=== PATIENT | female | born 1980 | race Caucasian/White ===

== ENCOUNTER 2021-04-05 10:51 | Observation (INO) | payer OTHER, SELFPAY ==
[2021-04-05] VITALS (8 sets, daily range): BP systolic 115–157; BP diastolic 69–95; PULSE 72–100; RESP 14–18; TEMP 36.3–36.8; O2SAT 97–99; BMI 22.6
--- NOTE | 2021-04-05 11:01 | DI.RAD.S_ITS ---
PROCEDURE: XR CHEST 1V INDICATIONS: chest pain/ shortness of breath TECHNIQUE: One view of the chest was acquired. COMPARISON: None. FINDINGS: Surgical changes and devices: None. Lungs and pleura: Lungs are clear. No pleural effusions or pneumothorax. Mediastinum: Mediastinal contours appear normal. Heart size is normal. Bones and chest wall: No suspicious bony lesions. Overlying soft tissues appear unremarkable. IMPRESSION: Portable chest within normal limits. Dictated by: Cuco Hurtado M.D. on 04/05/2021 at 10:14 Approved by: Cuco Hurtado M.D. on 04/05/2021 at 10:14
--- NOTE | 2021-04-05 11:27 | ED.CHESTPAIN ---
HPI - Chest Pain General Chief Complaint: Chest Pain Stated Complaint: Pain comes and goes chest, second vaccine-week Time Seen by Provider: 04/05/21 11:05 Source: patient Mode of arrival: Ambulatory Limitations: no limitations History of Present Illness HPI narrative: Patient complains substernal chest pressure off and on for the past 2 weeks. Patient had 2nd Moderna vaccine on March 26. That night she felt very tired fatigued. However in the following days she started experiencing discomfort of the chest at rest as well as with exertion. Patient currently has no chest pain. Feels short of breath at times. No cough cold congestion. No fever chills. Does not smoke. Does not take blood pressure medication or cholesterol medication. Family history of coronary disease with father starting in his 50s. Patient is 40 years of age. No history of blood clots in legs or lungs. Denies any calf pain. Related Data Home Medications Medication Instructions Recorded Confirmed multivitamin (Multiple Vitamins) 1 tab PO QDAY #0 06/01/17 04/05/21 Allergies Allergy/AdvReac Type Severity Reaction Status Date / Time prochlorperazine Allergy Unknown Verified 04/05/21 10:58 [PROCHLORPERAZINE] Review of Systems Review of Systems Narrative: GENERAL: Denies chills, fatigue, malaise, fever, sweats. HEENT: Denies sinus pain, ear pain, sore throat RESPIRATORY: Complains dyspnea, denies cough CARDIOVASCULAR: Complains chest pain, denies palpitations GASTROINTESTINAL: Denies nausea, vomiting, abdominal pain : Denies dysuria, frequency, hematuria MUSCULOSKELETAL: denies muscle or bony pain SKIN: Denies rash, skin lesions NEUROLOGIC: Denies weakness, numbness ROS Unobtainable: All systems reviewed & are unremarkable except as noted in HPI and below Patient History Surgical History Status post skin graft Family History (Updated 04/05/21 @ 16:04 by Kartik Ward MD) Father Age: 76 Atrial fibrillation, unspecified type Grandmother Brain tumor Primary malignant neoplasm of liver Mother Sjogren's disease Fibromyalgia Social History household members: spouse and family Smoking Status: Never smoker Smoking Status: Never smoker alcohol intake frequency: 0-2 drinks per day Substance Use Type: does not use Exam Narrative Exam Narrative: GENERAL: in no distress, not toxic not dyspneic HEAD: Normocephalic. EYES: Pupils equal round No scleral icterus. No injection no discharge ENT: Mucous membranes moist. NECK: Trachea midline. CARDIOVASCULAR: Regular rate and rhythm without murmurs RESPIRATORY: Clear to auscultation. Breath sounds equal bilaterally. No wheezes, rales, or rhonchi. GASTROINTESTINAL: Abdomen soft, non-tender EXTREMITIES: No gross deformities. No calf tenderness BACK: No flank tenderness. NEURO: AOx4. SKIN: Warm and dry PSYCH: Not anxious, is cooperative Initial Vital Signs Initial Vital Signs: Vital Signs Temperature 97.4 F L 04/05/21 10:53 Pulse Rate 100 H 04/05/21 10:53 Respiratory Rate 14 04/05/21 10:53 Blood Pressure 157/95 H 04/05/21 10:53 Pulse Oximetry 99 04/05/21 10:53 Course Course Course Narrative: No new issues during course of stay. Currently chest pain-free Decision to Admit Date: 04/05/21 Decision to Admit time: 12:59 Orders Ordered: ED Orders 04/05/21 11:01 Chest [XR chest 1V] Stat EKG-12 Lead Stat 04/05/21 11:50 Complete Blood Count AUTO DIFF Stat Comprehensive Metabolic Panel Stat D Dimer Stat Lipase Stat Test Serum,Qual Stat Troponin & CK Cardiac Panel Stat Acetaminophen (Acetaminophen 325 Mg Tablet) 650 mg PO Q6HR PRN PRN Reason: Fever/Mild Pain (1-3) Enoxaparin Sodium (Enoxaparin 40 Mg/0.4 Ml Syringe) 40 mg SUBCUT DAILY WOLF Magnesium Hydroxide (Magnesium Hydroxide 30 Ml Udc) 30 ml PO DAILY PRN PRN Reason: Constipation Naloxone HCl (Naloxone 0.4 Mg/Ml Vial) 0.2 mg IV Q2MIN PRN PRN Reason: Opiate Reversal Discontinued Medications Aspirin (Aspirin 325 Mg Tablet) 325 mg PO NOW ONE Stop: 04/05/21 13:46 Last Admin: 04/05/21 14:32 Dose: 325 mg Documented by: TAJ Sodium Chloride (Normal Saline 0.9%) 1,000 mls @ 150 mls/hr IV CONT WOLF Last Infusion: 04/05/21 13:25 Dose: 0 mls/hr Documented by: Admin: 04/05/21 11:48 Dose: 150 mls/hr Documented by: ATAYLOR Reevaluation(s) Reevaluation #1: Reviewed results with patient. Currently chest pain-free. She agrees with admission. Time: 12:59 Consultations Consultation #1: Spoke with hospitalist, Dr Ward, will admit Time: 12:59 Vital Signs Vital signs: Vital Signs - 8 hr 04/05/21 10:53 04/05/21 12:26 Temperature 97.4 F L Pulse Rate 100 H 83 Respiratory Rate 14 16 Blood Pressure 157/95 H 128/73 Pulse Oximetry 99 99 MDM - Chest Pain Differential Diagnosis Differential diagnosis: Likely stable angina, unstable angina pectoris, atypical chest pain, st elevation myocardial infarction, costochondritis and chest pain Lab Data Result diagrams: 04/05/21 11:50 04/05/21 11:50 Labs: Lab Results 04/05/21 04/05/21 04/05/21 Range/Units 11:50 11:50 11:50 WBC 6.1 (4.5-11.0) X10^3/uL RBC 4.31 (4.0-5.2) X10^6/uL Hgb 12.7 (12.0-16.0) g/dL Hct 37.6 (36-46) % MCV 87.2 (80-100) fL MCH 29.4 (26-34) PG MCHC 33.7 (30-36) % RDW 13.3 (11.6-14.8) % Plt Count 300 (150-400) X10^3/uL Neut % (Auto) 64.7 (50-75) % Lymph % (Auto) 26.0 (25-40) % [place] % (Auto) 7.0 (3-14) % Eos % (Auto) 1.6 L (2-4) % Baso % (Auto) 0.7 (0-2) % Neut # (Auto) 3900 (0125-5388) /uL Lymph # (Auto) 1600 (3188-0129) /uL [place] # (Auto) 400 (0-900) /uL Eos # (Auto) 100 (0-450) /uL Baso # (Auto) 0 (0-100) /uL D-Dimer < 200 (<230) ng/mL Sodium 139 (137-145) mmol/L Potassium 4.0 (3.4-5.1) mmol/L Chloride 108 H (98-107) mmol/L Carbon Dioxide 27 (22-32) mmol/L BUN 10 (7-17) mg/dL Creatinine 0.56 (0.52-1.04) mg/dL Estimated GFR > 60.0 (>60) mL/min BUN/Creatinine Ratio 17.9 (6-22) Glucose 101 H (70-100) mg/dL Calcium 8.9 (8.4-10.2) mg/dL Total Bilirubin 0.7 (0.2-1.3) mg/dL AST 22 (14-36) IU/L ALT 20 (<35) IU/L Alkaline Phosphatase 51 (38-126) U/L Total Creatine Kinase 36 (30-135) U/L CK-MB (CK-2) TNP CK-MB (CK-2) Rel Index TNP Troponin I < 0.012 (0.01-0.034) ng/mL Total Protein 7.2 (6.3-8.2) g/dL Albumin 4.4 (3.5-5.0) g/dL Globulin 2.8 (1.7-4.1) g/dL Albumin/Globulin Ratio 1.6 (1.0-2.8) Lipase 92 (23-300) U/L Serum , Qual (Negative) 04/05/21 Range/Units 11:50 WBC (4.5-11.0) X10^3/uL RBC (4.0-5.2) X10^6/uL Hgb (12.0-16.0) g/dL Hct (36-46) % MCV (80-100) fL MCH (26-34) PG MCHC (30-36) % RDW (11.6-14.8) % Plt Count (150-400) X10^3/uL Neut % (Auto) (50-75) % Lymph % (Auto) (25-40) % [place] % (Auto) (3-14) % Eos % (Auto) (2-4) % Baso % (Auto) (0-2) % Neut # (Auto) (5292-6337) /uL Lymph # (Auto) (0275-5043) /uL [place] # (Auto) (0-900) /uL Eos # (Auto) (0-450) /uL Baso # (Auto) (0-100) /uL D-Dimer (<230) ng/mL Sodium (137-145) mmol/L Potassium (3.4-5.1) mmol/L Chloride (98-107) mmol/L Carbon Dioxide (22-32) mmol/L BUN (7-17) mg/dL Creatinine (0.52-1.04) mg/dL Estimated GFR (>60) mL/min BUN/Creatinine Ratio (6-22) Glucose (70-100) mg/dL Calcium (8.4-10.2) mg/dL Total Bilirubin (0.2-1.3) mg/dL AST (14-36) IU/L ALT (<35) IU/L Alkaline Phosphatase (38-126) U/L Total Creatine Kinase (30-135) U/L CK-MB (CK-2) CK-MB (CK-2) Rel Index Troponin I (0.01-0.034) ng/mL Total Protein (6.3-8.2) g/dL Albumin (3.5-5.0) g/dL Globulin (1.7-4.1) g/dL Albumin/Globulin Ratio (1.0-2.8) Lipase (23-300) U/L Serum , Qual Negative (Negative) Imaging Data Chest x-ray: Radiologist's Impression: [address] [id number] ReportSigned Patient: Sintia Cortez [facility]#: [id number]: 1980Acct:[id number]/Sex: 40 / FDate of Service: 04/05/21Loc: EDAccession Number: [id number] Procedure: XR chest 1V Ordering Provider: Omar Logan MD PROCEDURE: XR CHEST 1V INDICATIONS: chest pain/ shortness of breath TECHNIQUE: One view of the chest was acquired. COMPARISON: None. FINDINGS: Surgical changes and devices: None. Lungs and pleura: Lungs are clear. No pleural effusions or pneumothorax. Mediastinum: Mediastinal contours appear normal. Heart size is normal. Bones and chest wall: No suspicious bony lesions. Overlying soft tissues appear unremarkable. IMPRESSION: Portable chest within normal limits. Dictated by: Cuco Hurtado M.D. on 04/05/2021 at 10:14 Approved by: Cuco Hurtado M.D. on 04/05/2021 at 10:14 ECG Data Interpretation: Normal sinus rhythm rate [address] elevation or depression MDM Narrative Medical decision making narrative: Appropriate for admission for chest pain rule out and stress test. Father has history of early coronary disease. Patient agreeable for admission. She desires stress test. Discharge Plan Departure Patient Disposition: Admitted as Observation Clinical Impression: Chest pain Qualifiers: Chest pain type: unspecified Qualified Code(s): R07.9 - Chest pain, unspecified Admit Date/Time: 04/05/21 13:00 Admit Provider: Kartik Ward
[2021-04-05] MEDS: SODIUM CHLORIDE 0.9% 1,000 ML 150 ML IV (11:48)
[2021-04-05 12:00] LABS: Add Manual Diff / Slide Review NO; Basophils Absolute Auto 0 /uL (0-100); Basophils Percent Auto 0.7 % (0-2); Eosinophils Absolute Auto 100 /uL (0-450); Eosinophils Percent Auto 1.6 % (2-4); Hematocrit 37.6 % (36-46); Hemoglobin 12.7 g/dL (12.0-16.0); Lymphocytes Absolute Auto 1600 /uL (1100-4500); Mean Corpuscular HGB Conc 33.7 % (30-36); Mean Corpuscular Hemoglobin 29.4 PG (26-34); Mean Corpuscular Volume 87.2 fL (80-100); Monocytes Absolute Auto 400 /uL (0-900); Neutrophils Absolute Auto 3900 /uL (1500-7000); Neutrophils Percent Auto 64.7 % (50-75); Platelet Count 300 X10^3/uL (150-400); Red Blood Cell Count 4.31 X10^6/uL (4.0-5.2); Red Cell Distribution Width 13.3 % (11.6-14.8); White Blood Cell Count 6.1 X10^3/uL (4.5-11.0)
[2021-04-05 12:20] LABS: Alanine Aminotransferase 20 IU/L (<35); Albumin 4.4 g/dL (3.5-5.0); Albumin Globulin Ratio 1.6 (1.0-2.8); Alkaline Phosphatase 51 U/L (38-126); Aspartate Aminotransferase 22 IU/L (14-36); BUN Creatinine Ratio 17.9 (6-22); Bilirubin Total 0.7 mg/dL (0.2-1.3); Blood Urea Nitrogen 10 mg/dL (7-17); Calcium 8.9 mg/dL (8.4-10.2); Carbon Dioxide 27 mmol/L (22-32); Chloride 108 mmol/L (98-107); Creatine Kinase 36 U/L (30-135); D Dimer < 200 ng/mL (<230); Estimated Glomerular Filt Rate > 60.0 mL/min (>60); Globulin 2.8 g/dL (1.7-4.1); Glucose 101 mg/dL (70-100); HEMOLYSIS < 15 (0-50); Lipase 92 U/L (23-300); Sodium 139 mmol/L (137-145); Total Protein 7.2 g/dL (6.3-8.2)
[2021-04-05 12:31] LABS: Troponin I < 0.012 ng/mL (0.01-0.034)
[2021-04-05 12:53] LABS: Pregnancy Test Serum,Qual Negative (Negative)
[2021-04-05] MEDS: ASPIRIN 325 MG TABLET PO (14:32)
--- NOTE | 2021-04-05 15:01 | PC.NURSE ---
A&Ox4. VSS. Denies pain at this time. Saline locked. NPO until cardiac testing. Tele placed. On isolation precautions until Covid test results. Call light within reach, bed low.
[2021-04-05 15:17] LABS: COVID19 - ADMIT (NP swab/PCR) Negative (Negative)
--- NOTE | 2021-04-05 15:59 | PM.HP.1 ---
History of Present Illness History of Present Illness Date Patient Seen: 04/05/21 Time Patient Seen: 15:30 Date of Onset of Symptoms: 03/29/21 Chief complaint: Pain comes and goes chest, second vaccine-week Narrative: Patient is 40-year-old female presented to ED with complaints of intermittent substernal and precordial chest discomfort for the past week. Patient states she had her 2nd shot of Pfizer vaccine on March 26. She felt tired for a couple of days after the shot. About 3 or 4 days after the shot she began to notice intermittent dull discomfort across her chest. The discomfort is nonradiating. She got more worried discomfort when developed more severe pain while mixing concrete. She does have intermittent dyspnea which she states is similar to what she has noticed in the past with anxiety. However, the chest pain is not something she has experienced before. No abdominal pain, nausea or vomiting. No fevers, chills or cough. She had normal EKG and troponin. COVID PCR negative. She is not on any medications. Family history notable for father who developed AFib in his 40s and is alive at 76. No other cardiac family history. Patient is nonsmoker. Patient History Surgical History Status post skin graft Family & Social History Family History Father Age: 76 Atrial fibrillation, unspecified type Grandmother Brain tumor Primary malignant neoplasm of liver Mother Sjogren's disease Fibromyalgia Social History: household members spouse,family Prior Living Arrangements House Safety & Behavioral: Feels Safe in Current Yes Environment Been Physically Hurt or No Threatened By a Person Suicidal Ideation Description None Suicide Plan Description No Plan Tobacco & Substance use: Smoking Status Never smoker alcohol intake frequency 0-2 drinks per day Substance Use Type does not use Meds Home Medications and Allergies Home Medications Medication Instructions Recorded Confirmed Type multivitamin (Multiple Vitamins) 1 tab PO QDAY #0 06/01/17 04/05/21 History Allergies Allergy/AdvReac Type Severity Reaction Status Date / Time prochlorperazine Allergy Unknown Verified 04/05/21 10:58 [PROCHLORPERAZINE] Review of Systems Review of Systems Narrative: Complete ROS otherwise negative. Exam Vital Signs (past 8 hours): - 04/05/21 10:53 04/05/21 12:26 04/05/21 13:57 Temperature 97.4 F L Pulse Rate 100 H 83 Respiratory Rate 14 16 Blood Pressure 157/95 H 128/73 Pulse Oximetry 99 99 99 04/05/21 15:58 Temperature 97.3 F L Pulse Rate 72 Respiratory Rate 16 Blood Pressure 126/76 Pulse Oximetry 99 Oxygen Delivery Method Room Air Narrative Exam Narrative: General: Alert pleasant and cooperative female NAD HEENT: Anicteric Neck: No lymphadenopathy Lungs: Clear to auscultation Heart: Normal S1 and S2, regular rate and rhythm, no murmur Abdomen: Nondistended, nontender, no HSM Extremities: No edema Neurological: Affect normal, speech normal Objective Labs Result Diagrams: 04/05/21 11:50 04/05/21 11:50 Labs: Laboratory Results - last 24 hr 04/05/21 04/05/21 04/05/21 11:50 11:50 11:50 WBC 6.1 RBC 4.31 Hgb 12.7 Hct 37.6 MCV 87.2 MCH 29.4 MCHC 33.7 RDW 13.3 Plt Count 300 Neut % (Auto) 64.7 Lymph % (Auto) 26.0 [place] % (Auto) 7.0 Eos % (Auto) 1.6 L Baso % (Auto) 0.7 Neut # (Auto) 3900 Lymph # (Auto) 1600 [place] # (Auto) 400 Eos # (Auto) 100 Baso # (Auto) 0 D-Dimer < 200 Sodium 139 Potassium 4.0 Chloride 108 H Carbon Dioxide 27 BUN 10 Creatinine 0.56 Estimated GFR > 60.0 BUN/Creatinine Ratio 17.9 Glucose 101 H Calcium 8.9 Total Bilirubin 0.7 AST 22 ALT 20 Alkaline Phosphatase 51 Total Creatine Kinase 36 CK-MB (CK-2) TNP CK-MB (CK-2) Rel Index TNP Troponin I < 0.012 Total Protein 7.2 Albumin 4.4 Globulin 2.8 Albumin/Globulin Ratio 1.6 Lipase 92 Serum , Qual SARS-CoV-2 (PCR) 04/05/21 04/05/21 11:50 13:09 WBC RBC Hgb Hct MCV MCH MCHC RDW Plt Count Neut % (Auto) Lymph % (Auto) [place] % (Auto) Eos % (Auto) Baso % (Auto) Neut # (Auto) Lymph # (Auto) [place] # (Auto) Eos # (Auto) Baso # (Auto) D-Dimer Sodium Potassium Chloride Carbon Dioxide BUN Creatinine Estimated GFR BUN/Creatinine Ratio Glucose Calcium Total Bilirubin AST ALT Alkaline Phosphatase Total Creatine Kinase CK-MB (CK-2) CK-MB (CK-2) Rel Index Troponin I Total Protein Albumin Globulin Albumin/Globulin Ratio Lipase Serum , Qual Negative SARS-CoV-2 (PCR) Negative Assessment & Plan Assessment & Plan narrative: 1. Acute chest pain -patient with intermittent dull precordial pain x1 week -initial EKG, troponin negative, chest x-ray normal -admit to observation telemetry -aspirin 325 mg x 1 then 81 mg q.d. -serial troponin -stress Mibi -echo -lipid panel Time Spent With Patient Critical Care time: I spent a total of [] minutes of critical care time on this patient's care today; this time is exclusive of procedural time.
[2021-04-05 20:50] LABS: Cholesterol 164 mg/dL (140-199); HDL Cholesterol 49 mg/dL (40-60); LDL Cholesterol Calculated 96 mg/dL (<100); Triglycerides 96 mg/dL (35-150)
[2021-04-05 21:02] LABS: Troponin I < 0.012 ng/mL (0.01-0.034)
[2021-04-06] VITALS (11 sets, daily range): BP systolic 95–125; BP diastolic 54–90; PULSE 66–74; RESP 16–18; TEMP 36.2–36.6; O2SAT 96–99
--- NOTE | 2021-04-06 07:23 | DI.ECHO.S_ITS ---
Reason For Study: CHEST PAIN : :Ordering Physician: TAMI : :OLIVIA Performed By: Alexa Ha : :Referring: OLIVIA GARRETT : + + Interpretation Summary Left ventricular systolic function is normal with an estimated ejection fraction of 60 to 65%. Left ventricular global longitudinal strain average is borderline at -19.2% (normal being more negative than -20%). There are no focal wall motion abnormalities. Left ventricular size and wall thickness are normal. Diastolic function is normal with probable normal filling pressures. The right ventricle is normal in size and function. The right ventricular systolic pressure is estimated to be at least 19 mmHg based on an estimated right atrial pressure of 3 mm Hg. Both atria are normal in size. There is mild tricuspid regurgitation but no significant valvular disease No pericardial effusion Procedure: A two-dimensional transthoracic echocardiogram with color flow and Doppler was performed. The study quality was technically adequate. There is no prior echocardiogram noted for this patient. The patient was in sinus rhythm with heart rates between 64-71 bpm during the exam. Left Ventricle: The left ventricle appears normal in size, wall thickness, and systolic function without any focal wall motion abnormalities. The ejection fraction is estimated to be 60-65%. Left ventricular global longitudinal strain average is borderline abnormal (normal being more negative than -20%). Left ventricular global longitudinal strain average is -19.2%. Diastolic parameters suggest probable normal left ventricular diastolic function and normal filling pressures. Right Ventricle: The right ventricle is normal in size and function. Atria: Both atria are normal in size. There is no Doppler evidence for an interatrial shunt. Mitral Valve: The mitral valve is normal in structure and function. There is trace mitral regurgitation. Aortic Valve: The aortic valve is normal in structure and function. The aortic valve is trileaflet. The aortic valve opens well. There is no aortic valve stenosis. No aortic regurgitation is present. Tricuspid Valve: The tricuspid valve is normal in structure and function. There is mild tricuspid regurgitation. The right ventricular systolic pressure is estimated to be at least 19 mmHg based on an estimated right atrial pressure of 3 mm Hg. Pulmonic Valve: The pulmonic valve is not well visualized. There is trace pulmonic regurgitation. Great Vessels: The aortic root is normal size. The dimensions of the ascending aorta are normal. The IVC is of normal diameter and collapses greater than 50% with a sniff. This suggests a low right atrial pressure of 3 mm Hg. Pericardium/ Pleura There is no pericardial effusion. There is no pleural effusion. MMode/2D Measurements & Calculations LVIDd: 4.3 cm LVOT diam: 2.0 cm LVIDs: 2.9 cm Ao root diam: 2.7 cm FS: 32.3 % asc Aorta Diam: 3.0 cm IVSd: 0.77 cm Ao Arch Diam (Prox Trans): 2.7 cm LVPWd: 0.51 cm LV milner. diameter/BSA (cm/m^2): 2.5 LV sys. diameter/BSA (cm/m^2): 1.7 LA A2 area: 18.1 cm2 RA long axis: 4.6 cm LA A4 area: 17.2 cm2 RA area: 15.9 cm2 LA length (vol): 4.8 cm RA vol: 47.3 ml LA vol: 54.5 ml RA : 27.5 ml/m2 LA vol index: 31.7 ml/m2 IVC diam: 1.8 cm RVD1 (basal): 3.2 cm TAPSE: 1.8 cm Doppler Measurements & Calculations Ao V2 max: 114.1 cm/sec LVOT Max Jose Francisco: 90.3 cm/sec Ao V2 mean: 72.6 cm/sec LV V1 max P.3 mmHg Ao max P.2 mmHg LV V1 VTI: 19.1 cm Ao mean P.5 mmHg LORENE(I,D): 2.5 cm2 Ao V2 VTI: 23.8 cm LORENE(V,D): 2.5 cm2 sev ratio: 0.80 LORENE indexed to BSA (cm^2/m^2): 1.5 MV E max jose francisco: 81.4 cm/sec TR max jose francisco: 199.6 cm/sec MV A max jose francisco: 46.4 cm/sec TR max P.9 mmHg MV E/A: 1.8 PA V2 max: 86.4 cm/sec Med Peak E' Jose Francisco: 9.6 cm/sec PA V2 mean: 54.8 cm/sec E/E' med: 8.4 PA mean P.4 mmHg Lat Peak E' Jose Francisco: 13.6 cm/sec PA pr(Accel): 19.1 mmHg E/E' lat: 6.0 E/e' average: 7.2 MV dec time: 0.21 sec SV(LVOT): 59.4 ml Reading Physician:05:44 PM
--- NOTE | 2021-04-06 14:01 | CM.DANOTE ---
DCP: Case received, EMR reviewed and met with patient. Spouse, Omar, was at bedside. Introduced self and role. Was able to obtain obtain information regarding her baseline health status, as well as some financial information. DCP assessment completed with information currently available. Patient is a 40 year old female who admitted yesterday afternoon to the care of the hospitalist team. PCP: Dr. Nielsen Payer: No insurance. Patient came to the hospital via private vehicle secondary to having some chest pain. Patient had recent COVID vaccine, phizer, and thought that it might have been from the shot. Patient is shreyas for chest pain, and will be having a stress test today. Met with patient and , in room. Asked her if she had any insurance, she indicated, she does not, she had spoken to the admission counselors already, she stated that she has a medical fund. Patient indicated, she usually is health, and hasn't had to recently see anyone. According to collection notes, patient was given a financial packet. Patient is independent at her baseline. She resides with , Omar, here in [place]. Her provider is at [facility]. P: DCP to continue to follow. Patient should be able to go home when she is deemed medically stable, and after cardiac testing is completed. Aliza Herman RN/Cupola Patcher Helper
--- NOTE | 2021-04-06 17:49 | PM.DS.1 ---
History of Present Illness History of Present Illness Chief complaint: Pain comes and goes chest, second vaccine-week Narrative: Patient is 40-year-old female presented to ED with complaints of intermittent substernal and precordial chest discomfort for the past week. Patient states she had her 2nd shot of Pfizer vaccine on March 26. She felt tired for a couple of days after the shot. About 3 or 4 days after the shot she began to notice intermittent dull discomfort across her chest. The discomfort is nonradiating. She got more worried discomfort when developed more severe pain while mixing concrete. She does have intermittent dyspnea which she states is similar to what she has noticed in the past with anxiety. However, the chest pain is not something she has experienced before. No abdominal pain, nausea or vomiting. No fevers, chills or cough. She had normal EKG and troponin. COVID PCR negative. She is not on any medications. Family history notable for father who developed AFib in his 40s and is alive at 76. No other cardiac family history. Patient is nonsmoker. Discharge Providers Provider Date of admission: 04/05/21 13:00 Discharge Date: 04/06/21 Discharge provider: Kartik Ward MD Summary Hospital Course Discharge Diagnosis: 1. Chest pain, negative cardiac workup Transthoracic echocardiogram: Normal Myocardial perfusion stress test: Normal Patient was admitted to observation for evaluation of chest pain syndrome. Serial troponin was negative. Chest x-ray normal. Both the echocardiogram and myocardial perfusion stress test are normal as well. Patient is at low risk for having significant coronary disease. On exam, vitals are normal. Heart sounds are regular. Lungs are clear. Status at Discharge Overall status at discharge: patient is back to baseline Exam Vital Signs (past 8 hours): - 04/06/21 11:00 04/06/21 12:53 04/06/21 12:54 Temperature 97.8 F Pulse Rate 73 Respiratory Rate 18 Blood Pressure 125/90 Pulse Oximetry 96 97 97 04/06/21 15:41 04/06/21 16:00 Temperature 97.4 F L Pulse Rate 74 Respiratory Rate 16 Blood Pressure 103/68 Pulse Oximetry 99 99 Oxygen Delivery Method Room Air Oxygen Flow Rate 0 Objective Labs Result Diagrams: 04/05/21 11:50 04/05/21 11:50 Labs: Laboratory Results - last 24 hr 04/05/21 04/05/21 20:35 20:35 Troponin I < 0.012 Triglycerides 96 Cholesterol 164 LDL Cholesterol, Calc 96 HDL Cholesterol 49 PFSH Surgical History Status post skin graft Family History (Updated 04/05/21 @ 16:04 by Kartik Ward MD) Father Age: 76 Atrial fibrillation, unspecified type Grandmother Brain tumor Primary malignant neoplasm of liver Mother Sjogren's disease Fibromyalgia Social History household members: spouse and family Smoking Status: Never smoker Discharge Plan Discharge Plan Patient Disposition: Home Provider Discharge Comment: Your blood work, echocardiogram and myocardial perfusion stress test were normal. Monitor symptoms and follow up if having any new or worsening chest pain or difficulty breathing. You do not need the resting portion of stress test since the exercise portion was normal. Discharge orders & Medications Prescriptions: Continued multivitamin [Multiple Vitamins] 1 EACH tablet 1 tab PO QDAY Qty: 0 RF: 0 Diet/Activity/Treatments Diet: Regular Discharge Data Attending Provider: Kartik Ward
--- NOTE | 2021-04-07 04:14 | DI.NM.S_ITS ---
DATE OF SERVICE: PROCEDURE: Exercise perfusion study. DATE OF STUDY: 04/06/2021. INDICATIONS: Chest pain, fatigue. RADIOPHARMACEUTICAL: 26.2 millicurie technetium-99m Myoview IV was injected at stress. Please note this is exercise stress test perfusion study only. CARDIAC STRESS: The patient underwent exercise perfusion study under the supervision of an attending staff. She walked on Gilberto protocol for 9 minutes and 18 seconds, achieved 93 percent of target heart rate. Baseline blood pressure 130/80. Peak blood pressure 160/100. The patient achieved 10.1 METS of workload and functional aerobic impairment -8%. The patient felt fatigue. At rest, patient has mild left-sided chest discomfort which during early part of exercise moved to the right side of the chest and got resolved during peak exercise. Baseline rhythm was sinus. During exercise, there was some nonspecific upsloping ST depression in inferior lateral leads. No convincing ischemic changes or significant sustained arrhythmias seen. RAW DATA: Breast shadow was seen. GATED STUDY: Stress LV ejection fraction 82 percent without any obvious wall motion abnormalities. Stress end-diastolic volume 67 mL. Lung/heart ratio 0.28, which is within normal limits. MYOCARDIAL PERFUSION SCAN: Stress supine and stress prone images were compared to each other. There appears to be normal myocardial perfusion. CONCLUSION: This is a normal myocardial perfusion study. Good exercise tolerance. Normal hemodynamic response except that diastolic blood pressure at baseline was 80 and during peak reported to be 100 mmHg. No significant sustained arrhythmias seen. Non exertional chest pain which got improved during exercise. Overall, this is a low risk study. Sintia Cortez - GABRIELA/stephanie/kristopher doc#: [id number]/job#: [id number] dd: 04/06/2021 17:20:00 dt: 04/07/2021 04:00:00 DICTATING MD/COPIES TO: Amadeo Shanks MD COPIES MNE: JAZMIN;
== END 2021-04-06 18:15 | disposition home or self-care (01) ==
LOC: ED 13:00 → AC 13:01
PROVIDERS: Admitting Provider Internal Medicine; Emergency Provider Emergency Medicine; Family Provider Family Medicine; Referring Provider Emergency Medicine; Visit Provider Internal Medicine
DX: R07.9 Chest pain, unspecified (principal); Z20.822 Contact with and (suspected) exposure to COVID-19
CPT/HCPCS: 36415; 71045; 78451; 80053; 80061; 82550; 83690; 84484; 84703; 85025; 85379; 87635; 93005; 93010; 93017; 93306; 94760; 96360; 96361; 99284; C9803; G0378; A9502

== ENCOUNTER → 2023-04-05 11:56 | Outpatient (CLI) | payer OTHER, SELFPAY ==
[2021-04-05 13:04] VITALS: BMI 22.6
--- NOTE | 2023-04-05 12:05 | DI.US.S_ITS ---
ULTRASOUND OF RIGHT BREAST: 04/05/2023 CLINICAL: Palpable right breast lump. Comparison is made to exams dated: 04/05/2023 mammogram, 04/11/2012 mammogram - [facility], and 04/18/2011 mammogram - [facility]. Color flow and real-time ultrasound of the right breast were performed. Sanchez scale images of the real-time examination were reviewed. There is a benign 2.3 cm x 2.5 cm x 1.4 cm oval cyst in the right breast at 4 o'clock anterior depth. This oval cyst is anechoic. This correlates as palpated, with mammography findings, and area of clinical concern. Color flow imaging demonstrates that there is no vascularity present. IMPRESSION: BENIGN There is no sonographic evidence of malignancy. The 2.3 cm x 2.5 cm x 1.4 cm oval cyst in the right breast is consistent with a simple cyst and is benign. Recommend clinical follow up for persistent or worsening symptoms, or development of any clinically suspicious findings. Cyst aspiration for symptomatic relief can be considered if cysts demonstrate continued enlargement with associated pain. A 1 year screening mammogram is recommended. Findings and recommendations were conveyed to the patient during today's evaluation. This exam was interpreted at Station ID: [id number]. Electronically Signed By: Keaton Tate M.D. aty/:04/05/2023 13:43:20 letter sent: Clinical Evaluation Ultrasound BI-RADS: 2 Benign
--- NOTE | 2023-04-05 12:05 | DI.MG.S_ITS ---
BILATERAL DIGITAL DIAGNOSTIC MAMMOGRAM 3D/2D: 04/05/2023 CLINICAL: Lump in the Right Breast. Comparison is made to exams dated: 04/11/2012 mammogram - [facility] and 04/18/2011 mammogram - [facility]. Both breasts are heterogeneously dense, which may obscure small masses (category c / 51-75% glandular tissue). There is a 2.2 cm oval focal asymmetry in the right breast at 4 o'clock anterior depth. This correlates as palpated, with area of clinical concern, and skin marker. No other significant masses, calcifications, or other findings are seen in either breast. IMPRESSION: INCOMPLETE: NEEDS ADDITIONAL IMAGING EVALUATION The 2.2 cm oval focal asymmetry in the right breast resembles a cyst and is indeterminate. An ultrasound is recommended for further evaluation and is scheduled to immediately follow this examination. Based on the Tyrer Cuzick model (a risk assessment model) the patient's lifetime risk is 11.9% and her 10 year risk is 2.0%. According to the ACR, ACS, and NCCN guidelines, an annual breast MRI exam along with mammogram is recommended if the patient's lifetime risk is 20% or greater. This exam was interpreted at Station ID: [id number]. NOTE: For mammograms, a report in lay terms will be sent to the patient. Approximately 15% of breast malignancies will not be visualized mammographically. In the management of a palpable breast mass, a negative mammogram must not discourage biopsy of a clinically suspicious lesion. Electronically Signed By: Keaton Tate M.D. aty/:04/05/2023 13:40:26 ACR BI-RADS Category 0: Incomplete 3340F
--- NOTE | 2023-04-05 12:10 | DI.RAD.S_ITS ---
PROCEDURE: XR FOOT RT MIN 3V INDICATIONS: WEIGHT BEARING TECHNIQUE: 3 views of the foot were acquired. COMPARISON: None. FINDINGS: Bones: Plantar and calcaneal enthesopathy. Mild valgus alignment at the 1st MTP, with moderate to severe underlying degenerative changes. Medial bunion. Subchondral lucencies likely geodes. Soft tissues: No suspicious calcifications. 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 If there is high concern for further derangement, consider MRI evaluation. Dictated by: Brian Avila M.D. on 04/05/2023 at 15:04 Approved by: Brian Avila M.D. on 04/05/2023 at 15:05
--- NOTE | 2023-04-05 12:11 | DI.RAD.S_ITS ---
PROCEDURE: XR FOOT LT MIN 3V INDICATIONS: WEIGHT BEARING TECHNIQUE: 3 views of the foot were acquired. COMPARISON: None. FINDINGS: Bones: Plantar and calcaneal enthesopathy. [id number] 1st MTP degenerative changes. Mild valgus alignment and medial bunion. Soft tissues: No suspicious calcifications. IMPRESSION: Eevn-oy-[id number] 1st MTP degenerative changes, valgus alignment, and medial bunion. If there is high concern for further derangement, consider MRI evaluation. Dictated by: Brian Avila M.D. on 04/05/2023 at 15:05 Approved by: Brian Avila M.D. on 04/05/2023 at 15:06
== END ==
PROVIDERS: Family Provider Family Medicine; Referring Provider Naturopath; Visit Provider Naturopath
DX: N60.01 Solitary cyst of right breast (principal); R92.8 Other abnormal and inconclusive findings on diagnostic imaging of breast; M21.612 Bunion of left foot; M21.611 Bunion of right foot; M77.32 Calcaneal spur, left foot; M77.31 Calcaneal spur, right foot; M79.673 Pain in unspecified foot
CPT/HCPCS: 73630; 76642; 77066; G0279

== ENCOUNTER 2023-11-21 06:34 | Emergency (ER) | payer OTHER, SELFPAY ==
[2021-04-05 13:04] VITALS: BMI 22.6
[2023-11-21 06:42] VITALS: BP 139/66; PULSE 105; RESP 18; TEMP 36.7; O2SAT 100; BMI 27.4
--- NOTE | 2023-11-21 07:27 | ED_ITS ---
HPI - Allergic Reaction General Chief complaint: Allergic Reaction Stated complaint: allergic reaction to viatamin B Time Seen by Provider: 11/21/23 06:59 Source: patient Mode of arrival: Ambulatory Limitations: no limitations History of Present Illness HPI narrative: 43-year-old who took a dose of multi complex vitamin B this morning that is states it is funny after she swallowed the pill became nauseated and felt flushed. Met counseled little itchy but improved now. Patient took 10 mL of liquids Benadryl prior to arrival. Patient notes she took a little bit more than typical. It has a pump that she put into a spoon she has had a little extra in the past but that was more than typical she is at the end of the bottle. Patient states shortly thereafter she started to feel red hot flushed they noticed color change her face and chest. She felt a little bit itchy little bit itchy in her throat as well. Patient states that she took 10 mL of liquid Benadryl and symptoms have since resolved. She has not had similar issues with this medication before. Patient states she does not have any other known allergies besides prochlorperazine. She has not on any other prescription medications. Denies any major surgeries. No tobacco, no regular alcohol or recreational drugs. Related Data Home Medications Medication Instructions Recorded Confirmed multivitamin (Multiple Vitamins 1 tab PO QDAY ##0 06/01/17 04/05/21 tablet) Allergies Allergy/AdvReac Type Severity Reaction Status Date / Time prochlorperazine Allergy Unknown Verified 04/05/21 10:58 [PROCHLORPERAZINE] Review of Systems Review of Systems ROS Unobtainable: All systems reviewed & are unremarkable except as noted in HPI and below Patient History Surgical History Status post skin graft Family History Father Age: 79 Atrial fibrillation, unspecified type Grandmother Brain tumor Primary malignant neoplasm of liver Mother Sjogren's disease Fibromyalgia Social History household members: spouse and family Smoking Status: Never smoker Smoking Status: Never smoker alcohol intake frequency: 0-2 drinks per day Substance Use Type: does not use Exam Narrative Exam Narrative: GEN: well nourished, well appearing female, alert and oriented x 3, patient appears to be in mild distress. HEENT: Atraumatic, pupils are equal round reactive to light, extraocular movements are intact, nares are clear, TMs are clear with no fluid, there is no conjunctival pallor. Throat is clear without any exudates, erythema, tonsillar enlargement or uvular deviation, no swelling of the oropharynx, no erythema or skin changes. Normal speech. HEART: Regular rate and rhythm without murmur, clicks, rubs. LUNGS:Lungs clear to auscultation, no wheezes, rales, crackles, chest moves symmetrically ABD:bowel sounds normal, soft, non-tender, no guarding, rebound, rigidity, no masses noted, no hepatosplenomegaly :No CVA tenderness MSCL: Non-tender, full range of motion, normal gait NEURO:CN 2-12 intact, sensation normal SKIN: No rash, erythema or hives, no vesicles or blisters Initial Vital Signs Initial Vital Signs: Vital Signs Temperature 98.1 F 11/21/23 06:42 Pulse Rate 105 H 11/21/23 06:42 Respiratory Rate 18 11/21/23 06:42 Blood Pressure 139/66 11/21/23 06:42 Pulse Oximetry 100 11/21/23 06:42 Oxygen Delivery Method Room Air 11/21/23 06:42 Course Orders Ordered: Discontinued Medications Dexamethasone (Dexamethasone 10 Mg/Ml Vial) 10 mg PO NOW ONE Stop: 11/21/23 07:37 Last Admin: 11/21/23 07:47 Dose: 10 mg Documented By: MPO Vital Signs Vital signs: Vital Signs - 8 hr 11/21/23 06:42 Temperature 98.1 F Pulse Rate 105 H Respiratory Rate 18 Blood Pressure 139/66 Pulse Oximetry 100 Oxygen Delivery Method Room Air MDM - Allergic Reaction MDM Narrative Medical decision making narrative: 43-year-old female who had erythema, flushing some slight itching sensation after taking her vitamin B complex. Patient had a picture of the complex does have 10 mg of niacin in it she notes that she had taken extra today from what she normally does and I suspect she may have had niacin flush. Patient had taken Benadryl which seemed to be helpful. And was given a dose of dexamethas one but discussed she can try her medication and a couple days at a normal amount as I suspect this was more of a flush from the niacin and a true allergic reaction. Did discuss return precautions all questions answered. Discharge Plan Departure Patient Disposition: Home Clinical Impression: Medication reaction Instructions: DI for Adverse Drug Reaction -- Allergic Activity Restrictions/Additional Instructions: I suspect you had a reaction to the Niacin (Vitamin B3) in your Vitamin B comp tyler. This medication is known to cause flushing in higher doses. Patients typically develop issues around 35mg daily but there are varying levels of sensitivity. You can take Benadryl 1-2 tablets every 6 hours as needed. Please return if you have recurrent symptoms, new chest pain or tightness, shortness of breath, swelling of your lips tongue or airway, persistent vomiting, lightheadedness or passing out or other new or concerning changes. Prescriptions: No Action multivitamin [Multiple Vitamins] 1 EACH tablet 1 tab PO QDAY Qty: 0 Stand Alone Forms: Patient Portal/API
[2023-11-21] MEDS: DEXAMETHASONE 10 MG/ML VIAL PO (07:47)
[2023-11-21 07:50] VITALS: BP 132/88; PULSE 86; RESP 20; TEMP 37; O2SAT 98
== END 2023-11-21 07:52 | disposition home or self-care (01) ==
PROVIDERS: Emergency Provider Emergency Medicine; Family Provider Family Medicine
DX: L29.9 Pruritus, unspecified (principal); T45.2X5A Adverse effect of vitamins, initial encounter
CPT/HCPCS: 99283; J1100

== ENCOUNTER → 2025-02-13 14:30 | Outpatient (CLI) | payer BC, OTHER, SELFPAY ==
[2021-04-05 13:04] VITALS: BMI 22.6
--- NOTE | 2025-02-13 14:33 | DI.MG.S_ITS ---
MM screening mammo BI: 02/13/2025. BI-RADS: 1 CLINICAL: 44-year old female for bilateral screening mammogram. Tyrer-Cuzick lifetime risk of 15.8%. No personal or first-degree family history of breast cancer. PRIOR EXAMS 04/05/2023. MAMMOGRAPHY TECHNIQUE: 2D and 3D (tomosynthesis) digital mammographic views obtained, with additional images as needed for full coverage. Current study was also evaluated with a Computer Aided Detection (CAD) system. DENSITY D. The breasts are extremely dense, which lowers the sensitivity of mammography. MAMMOGRAPHY FINDINGS Bilateral: No suspicious mass, asymmetry, microcalcification, or other abnormality seen. IMPRESSION: * No evidence of malignancy. RECOMMENDATIONS Bilateral * Annual screening mammography. OVERALL ASSESSMENT CATEGORY BI-RADS-1: Negative. The [employer] recommends annual screening mammography beginning at age 40 for women with average risk of breast cancer. ELECTRONICALLY SIGNED: Fatimah Moe M.D. on 02/13/2025 at 06:15:29 PM PT Interpreting Station ID: [id number]
== END ==
DX: Z12.31 Encounter for screening mammogram for malignant neoplasm of breast (principal); R92.343 Mammographic extreme density, bilateral breasts
CPT/HCPCS: 77063; 77067